=== PATIENT | female | born 1975 | race Caucasian/White ===

== ENCOUNTER 2016-09-20 11:49 | Inpatient (IN) | payer OTHER ==
[~2016-09-20] VITALS: Ht 167.6 cm; Wt 86.0 kg
[~2016-09-20 11:49] MED LIST: PREN1TAB17 PO
[2016-09-20] MEDS ORDERED: ACETAMINOPHEN 325 MG TAB PO STA (13:20)
[2016-09-20 13:59] LABS: ADD SCAN DIFF NO
[2016-09-20 14:02] LABS: BASOPHILS % 0.1 % (0.0-2.0); EOSINOPHILS # 0.1 10^3/ul (0.0-0.5); EOSINOPHILS % 0.8 % (0.0-7.0); HEMATOCRIT 35.4 % (37.0-47.0); HEMOGLOBIN 11.3 g/dl (12.0-16.0); LYMPHOCYTES # 1.4 10^3/ul (0.8-2.9); LYMPHOCYTES % 17.2 % (15.0-51.0); MEAN CORPUSCULAR HEMOGLOBIN 27.8 pg (29.0-33.0); MEAN CORPUSCULAR HGB CONC 31.9 g/dl (32.0-37.0); MEAN CORPUSCULAR VOLUME 87.2 fl (82.0-101.0); MONOCYTE # 0.3 10^3/ul (0.3-0.9); MONOCYTES % 4.1 % (0.0-11.0); NEUTROPHIL # 6.4 10^3/ul (1.6-7.5); NEUTROPHILS % 77.4 % (39.0-77.0); PLATELET COUNT 284 10^3/UL (140-415); RED BLOOD COUNT 4.06 10^6/ul (4.20-5.40); WHITE BLOOD COUNT 8.3 10^3/ul (4.8-10.8)
[2016-09-20 14:17] LABS: ADD UMIC YES; URINE BILIRUBIN (Dip) NEGATIVE (NEGATIVE); URINE BLOOD (Dip) 3+ (NEGATIVE); URINE COLOR LT. YELLOW (YELLOW); URINE GLUCOSE (Dip) NEGATIVE (NEGATIVE); URINE KETONES (Dip) NEGATIVE (NEGATIVE); URINE LEUKOCYTE ESTERASE (Dip) NEGATIVE (NEGATIVE); URINE NITRITE (Dip) NEGATIVE (NEGATIVE); URINE TOTAL PROTEIN (Dip) NEGATIVE (NEGATIVE); URINE UROBILINOGEN (Dip) 0.2 E.U./dL (0.1-1.0)
--- NOTE | 2016-09-20 14:23 | RADRPT ---
PROCEDURE: US Pelvis. CLINICAL INDICATION: vaginal bleeding TECHNIQUE: Multiple sonographic images of the pelvis were obtained utilizing a transabdominal and endovaginal technique. The images were reviewed on a PACS workstation. COMPARISON: None. FINDINGS: The uterus is normal in size and demonstrates a heterogeneous appearance of the myometrium. There is a 4.2 x 2.5 cm mixed echogenicity mass in the anterior uterus, suspicious for a fibroid. The endome trial stripe is homogeneous in appearance and has the thickness of 4 mm. No intrauterine gestation is noted. The right ovary measures 5.2 x 2.3 x 2.8 cm. There are normal follicles within the right ovary. The re is normal Doppler flow in the right ovary. There is a 3.4 x 2.8 cm heterogeneous mass adjacent to the right ovary, suspicious for a possible ec topic . There is a small amount of free fluid in the cul-de-sac. The left ovary was not visualized. RPTAT: AA IMPRESSION: No intrauterine gestation visualized. 3.4 cm heterogeneous mass adjacent to the right ovary, suspicious for a possible ectopic . Large fibroid within the uterus. Follow-up ultrasound and HCG levels is recommended. A call report was made and the findings discussed with Aubree Pickett Pa-c (Desire Abbasi) at 09/20/2016 2:1 8:49 PM. .Renard Christensen MD, MD Date Time Electronically viewed and signed by .Renard Christensen MD, MD on 09/20/2016 14:22 .S/
[2016-09-20 14:46] LABS: SQUAMOUS EPITHELIAL CELL,UR FEW
[2016-09-20 15:28] LABS: PT RATIO 1.1
[2016-09-20 15:31] LABS: ALBUMIN 4.3 g/dl (3.3-4.9); POTASSIUM 3.9 mmol/L (3.5-5.1)
[2016-09-20 15:33] LABS: CREATININE 0.69 mg/dl (0.44-1.00)
[2016-09-20 15:34] LABS: ALBUMIN/GLOBULIN RATIO 1.3; BILIRUBIN,INDIRECT 0.2 mg/dl (0-1.1); BILIRUBIN,TOTAL 0.2 mg/dl (0.2-1.3); TOTAL PROTEIN 7.6 g/dl (6.1-8.1)
[2016-09-20 15:35] LABS: CALCIUM 9.1 mg/dl (8.4-10.2)
[2016-09-20 16:25] LABS: PROTIME 13.1 Sec (12.2-14.2)
[2016-09-20 16:26] LABS: INR 0.99; PARTIAL THROMBOPLASTIN TIME 25.5 Sec (25.0-35.0)
[2016-09-20] MEDS ORDERED: SOD CHLORIDE 0.9% 1,000 ML IV SCH (16:33)
--- NOTE | 2016-09-20 16:49 | ERA ---
ER Documentation Chief Complaint Date/Time DATE: 09/20/16 TIME: 16:38 Chief Complaint WITH SPOTTING TODAY HPI 40-year-old female patient who is a presents to the ED complaining of bilateral left and right lower pelvic pain, predominantly in the right pelvic region associated with vaginal spotting that started 4 days ago. States that the vaginal bleeding is worsening and getting heavier since earlier today and had to change 4 pads. Describes the pain as a pulsating sensation and rates the pain a 4 out of 10. Denies any nausea, vomiting, diarrhea, constipation, chest pain, shortness of breath. States that she has had previous C-sections. Denies any vaginal discharge, dysuria, urgency, frequency, flank pain, hematuria. States that her last menses was on August 26, 2016. 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 ROS All systems reviewed and are negative except as per history of present illness. Medications Home Meds Reported Medications Vit-Iron Fumarate-FA ( Tablet) 1 Each Tablet, 1 EACH PO DAILY 03/27/13 [none] No Conflict Check 08/27/12 Allergies Allergies: Coded Allergies: No Known Allergy (Unverified , 08/27/12) PMhx/Soc Medical and Surgical Hx: pt denies Medical Hx History of Surgery: Yes (CAESARIAN SECTION) Anesthesia Reaction: No Hx Neurological Disorder: No Hx Respiratory Disorders: No Hx Cardiac Disorders: No Hx Psychiatric Problems: No Hx Miscellaneous Medical Probl: Yes (Abdominal sugery unk name 6yrs ago) Hx Alcohol Use: No Hx Substance Use: No Hx Tobacco Use: No Physical Exam Vitals Vital Signs Date Time Temp Pulse Resp B/P Pulse Ox O2 Delivery O2 Flow Rate FiO2 09/20/16 11:59 98.1 77 18 132/77 99 Physical Exam Const: [id number], well-nourished. In no acute distress. Head: Atraumatic, normocephalic Eyes: Normal Conjunctiva without injection. No purulent discharge. ENT: Normal external ear, nose. Moist oropharynx without tonsillar exudates. Non -erythematous pharynx. Uvula midline. No drooling. No trismus. Neck: No cervical midline tenderness. Full range of motion. No meningismus. No cervical lymphadenopathy. No JVD. Resp: Clear to auscultation bilaterally. No wheezing, rhonchi, rales, or crackles. No accessory muscle use. No retractions. Cardio: Regular rate and rhythm. No murmurs, rubs or gallops. Abd: Soft, right lower quadrant tenderness, non distended. Normal bowel sounds. No palpable masses. No rebound tenderness. No guarding. Negative McBurney' s point. Negative psoas sign. Negative obturator sign. Skin: No petechiae or rashes Back: No midline tenderness. No CVA tenderness. Ext: No cyanosis, or edema. Neur: Awake and alert. Normal gait. Normal coordination. Psych: Normal Mood and Affect Result Diagram: 09/20/16 1343 09/20/16 1500 Results 24 hrs Laboratory Tests Test 09/20/16 13:12 09/20/16 13:43 09/20/16 15:00 Urine Color LT. YELLOW Urine Clarity CLEAR Urine pH 5.5 Urine Specific Blanca 1.010 Urine Ketones NEGATIVE Urine Nitrite NEGATIVE Urine Bilirubin NEGATIVE Urine Urobilinogen 0.2 E.U./dL Urine Leukocyte Esterase NEGATIVE Urine Microscopic RBC 10-25/HPF Urine Microscopic WBC 0-2/HPF Urine Squamous Epithelial Cells FEW Urine Hemoglobin 3+ Urine Glucose NEGATIVE% Urine Total Protein NEGATIVE White Blood Count 8.310^3/ul Red Blood Count 4.0610^6/ul Hemoglobin 11.3g/dl Hematocrit 35.4% Mean Corpuscular Volume 87.2fl Mean Corpuscular Hemoglobin 27.8pg Mean Corpuscular Hemoglobin Concent 31.9g/dl Red Cell Distribution Width 13.0% Platelet Count 28239^3/UL Mean Platelet Volume 9.0fl Neutrophils % 77.4% Lymphocytes % 17.2% Monocytes % 4.1% Eosinophils % 0.8% Basophils % 0.1% Nucleated Red Blood Cells % 0.0/100WBC Neutrophils # 6.410^3/ul Lymphocytes # 1.410^3/ul Monocytes # 0.310^3/ul Eosinophils # 0.110^3/ul Basophils # 0.010^3/ul Nucleated Red Blood Cells # 0.010^3/ul Beta HCG, Quantitative 214.0mIU/ml Prothrombin Time 13.1Sec Prothrombin Time Ratio 1.1 INR International Normalized Ratio 0.99 Activated Partial Thromboplast Time 25.5Sec Sodium Level 140mmol/L Potassium Level 3.9mmol/L Chloride Level 103mmol/L Carbon Dioxide Level 25mmol/L Anion Gap 16 Blood Urea Nitrogen 12mg/dl Creatinine 0.69mg/dl Glucose Level 90mg/dl Calcium Level 9.1mg/dl Total Bilirubin 0.2mg/dl Direct Bilirubin 0.00mg/dl Indirect Bilirubin 0.2mg/dl Aspartate Amino Transf (AST/SGOT) 30IU/L Alanine Aminotransferase (ALT/SGPT) 41IU/L Alkaline Phosphatase 78IU/L Total Protein 7.6g/dl Albumin 4.3g/dl Globulin 3.30g/dl Albumin/Globulin Ratio 1.30 Current Medications Medications (Trade) Dose Ordered Sig/Eppe Route PRN Reason Start Time Stop Time Status Last Admin Dose Admin Acetaminophen 650 mg 650 mg ONCE STAT PO 09/20/16 13:20 09/20/16 13:25 DC 09/20/16 14:11 Sodium Chloride (NS) 1,000 ml @ 80 mls/hr [id number] IV 09/20/16 16:33 09/21/16 05:02 09/20/16 16:37 Ondansetron HCl (Zofran Inj) 4 mg BRIDGE ORDER PRN IV NAUSEA AND/OR VOMITING 09/20/16 17:00 09/21/16 16:59 Acetaminophen (Tylenol Tab) 650 mg ER BRIDGE PRN PO MILD PAIN/FEVER 09/20/16 17:00 09/21/16 16:59 Procedures/MDM This is a 40-year-old female patient who is a presents to the ED complaining of right and left lower pelvic pain that started intermittently 4 days ago associated with vaginal bleeding. Patient is afebrile and nontoxic- appearing. Patient has normal vital signs. An ultrasound, beta-hCG, CBC, type and RH, UA was ordered to evaluate patient. CBC: No evidence of severe infection or anemia Urine: No elevation in nitrites, leukocyte esterase, hematuria. No evidence of UTI Rh: O+ No indication for Rhogam at this time. beta Hc PROCEDURE: US Pelvis. CLINICAL INDICATION: vaginal bleeding TECHNIQUE: Multiple sonographic images of the pelvis were obtained utilizing a transabdominal and endovaginal technique. The images were reviewed on a PACS workstation. COMPARISON: None. FINDINGS: The uterus is normal in size and demonstrates a heterogeneous appearance of the myometrium. There is a 4.2 x 2.5 cm mixed echogenicity mass in the anterior uterus, suspicious for a fibroid. The endometrial stripe is homogeneous in appearance and has the thickness of 4 mm. No intrauterine gestation is noted. The right ovary measures 5.2 x 2.3 x 2.8 cm. There are normal follicles within the right ovary. There is normal Doppler flow in the right ovary. There is a 3.4 x 2.8 cm heterogeneous mass adjacent to the right ovary, suspicious for a possible ectopic . There is a small amount of free fluid in the cul-de-sac. The left ovary was not visualized. RPTAT: AA IMPRESSION: No intrauterine gestation visualized. 3.4 cm heterogeneous mass adjacent to the right ovary, suspicious for a possible ectopic . Large fibroid within the uterus. Follow-up ultrasound and HCG levels is recommended. A call report was made and the findings discussed with Aubree Dior Pa-c (Desire givens) at 09/20/2016 2:18:49 PM. This case was discussed with my supervising physician, Dr. Ruiz. We both agreed to consult the laborist security professional, Dr. Dey who evaluated patient at this time. Patient could likely have a miscarriage versus ectopic based on the 3.4 cm heterogenous mass adjacent to right ovary. beta Hcg is 214. No leukocytosis noted. Patient's pain improved after receiving Tylenol. Patient's bleeding symptoms have stabilized while in the department. Low suspicion for symptomatic anemia, sepsis, PID, appendicitis, ovarian torsion, tubo-ovarian abscess, surgical abdomen, or other emergent conditions. Dr. Dey will admit the patient at this time to [facility] for further evaluation and treatment. Patient will now be under the care of Dr. Dey. Patient agreed to be admitted at this time. Departure Diagnosis: Primary Impression: Vaginal bleeding before 22 weeks gestation Additional Impression: Pelvic pain affecting Condition: Fair AUBREE DIOR PA-C Sep 20, 2016 16:49
--- NOTE | 2016-09-20 16:55 | EN ---
Date/Time of Note Date/Time of Note DATE: 09/20/16 TIME: 16:55 ER Progress Note This 40-year-old female presents to the emergency room for evaluation of abdominal discomfort. She was originally seen in the fast track area, and I was informed that this patient could have a possible ectopic. BUILDING CONSTRUCTION PROFESSOR has been consulted and I would like to admit this patient. This patient will be admitted under the care of RO Monzon DO Sep 20, 2016 16:55
[2016-09-20 17:00] VITALS: TEMP 98.4
[2016-09-20] MEDS ORDERED: NACL 0.9% 3 ML SYG IV SCH (17:00)
[2016-09-20] MEDS ORDERED: ONDANSETRON 4 MG INJ IV PRN (17:00)
[2016-09-20] MEDS ORDERED: ACETAMINOPHEN 325 MG TAB PO PRN (17:00)
[2016-09-20 17:28] VITALS: BP 106/61; RESP 18
--- NOTE | 2016-09-20 17:46 | HP ---
DATE OF ADMISSION: 09/20/2016 HISTORY OF PRESENT ILLNESS: The patient is a 40-year-old G4, P3, last menstrual period approximatel y a month ago, who presents today complaining of this morning the patient had vaginal bleeding simil ar to a period and some abdominal cramping. The patient also complaining of some mild pain in the l ower abdomen on the right side. No nausea, no vomiting, fevers or chills. Pain is improving. Blee ding has slowed down. Cramping has slowed down. PAST MEDICAL HISTORY: None. PAST SURGICAL HISTORY: None. PAST OBSTETRIC HISTORY: x2, x1. MEDICATIONS: None. PHYSICAL EXAMINATION: VITAL SIGNS: Stable. HEART: ____ rate, regular rhythm. CHEST: Clear to auscultation bilaterally. ABDOMEN: Soft, nontender. No rebound or guarding. EXTREMITIES: There is no edema. Ultrasound done shows no intrauterine . There is a 3.5, 3.4 cm heterogeneous mass adjacent to the right ovary suspicious for possible ectopic . The patient's beta-hCG is 214. CBC, CMP within normal limits. Hemoglobin is 11.3. MEDICAL DECISION MAKING: A 40-year-old, of unknown location. The patient, due to the fac t that, per patient, has vaginal bleeding similar to a period this morning, some cramping, probable SAB. However, due to the fact the patient did have some abdominal pain and does on ultrasound have a 3.5 cm mass on the right side suspicious for ectopic , ectopic cannot be ruled out. Discussed with the patient that the best course of option would be to have her stay in the [facility], to repeat the hCG and ultrasound in the morning, and hCG if it has gone down appropriately, t he patient most likely has had a SAB. In fact, the patient has had heavy bleeding and cramping. Ho wever, again, due to the fact the patient has right abdominal pain and does have on imaging a possib le ____ mass or ectopic , I felt that it was appropriate [facility] the [facility] the next 24 or 48 hours. Dictated By: ELMA DIAZ MD /NTS Conf#: [id number] DID#: [id number]
[2016-09-20 18:05] VITALS: BP 115/70; PULSE 71; RESP 16
[2016-09-20 18:08] VITALS: Ht 167.6 cm; Wt 86.0 kg
[2016-09-20 20:00] VITALS: BP 117/71; RESP 20
[2016-09-21 05:35] LABS: ADD SCAN DIFF NO
[2016-09-21 06:12] LABS: BASOPHILS % 0.3 % (0.0-2.0); EOSINOPHILS # 0.2 10^3/ul (0.0-0.5); HEMATOCRIT 32.9 % (37.0-47.0); HEMOGLOBIN 10.5 g/dl (12.0-16.0); LYMPHOCYTES # 2.2 10^3/ul (0.8-2.9); LYMPHOCYTES % 36.9 % (15.0-51.0); MEAN CORPUSCULAR HGB CONC 31.9 g/dl (32.0-37.0); MEAN CORPUSCULAR VOLUME 87.7 fl (82.0-101.0); MEAN PLATELET VOLUME 9.3 fl (7.4-10.4); MONOCYTE # 0.4 10^3/ul (0.3-0.9); MONOCYTES % 6.6 % (0.0-11.0); NEUTROPHIL # 3.2 10^3/ul (1.6-7.5); NEUTROPHILS % 52.9 % (39.0-77.0); PLATELET COUNT 271 10^3/UL (140-415); RED BLOOD COUNT 3.75 10^6/ul (4.20-5.40); RED CELL DISTRIBUTION WIDTH 12.9 % (11.5-14.5)
[2016-09-21 07:48] VITALS: BP 108/65; RESP 18
--- NOTE | 2016-09-21 15:27 | RADRPT ---
PROCEDURE: OB Ultrasound. CLINICAL INDICATION: Positive test. Vaginal bleeding. TECHNIQUE: Ultrasound of the pelvis was performed with transabdominal and transvaginal sonography in the axial and sagittal planes. COMPARISON: 09/20/2016 which demonstrated no intrauterine gestation and a 3.4 cm heterogeneous mas s adjacent to the right ovary. FINDINGS: There is no intrauterine gestational sac. The uterus measures 10.4 x 5.1 x 5.8 cm. Endometrial thi ckness is 14 mm. There is an anterior hyperechoic mass in the uterus consistent with a fibroid laura uring 2.5 x 1.6 cm. The right ovary appears normal measuring 5.2 x 2.0 x 3.3 cm. The left ovary is not visualized. Color Doppler and pulsed Doppler sonography demonstrate normal flow to the right ovary. There is trace free fluid. There is a right adnexal mass measuring 2.3 x 2.2 x 2.6 cm, slightly sma ller than seen previously. IMPRESSION: 1. No intrauterine gestational sac. If the patient has a positive test, ectopic gestatio n cannot be excluded. 2. Right adnexal mass, slightly smaller than seen previously which may be due to ectopic gestation. 3. Fibroid in the uterus measuring 2.5 cm. 4. Left ovary not visualized. RPTAT: QQ .Donal Christiansen MD, Date Time Electronically viewed and signed by .Donal Christiansen MD, on 09/21/2016 15:27 .R/
--- NOTE | 2016-09-21 16:25 | CONS ---
Date/Time of Note Date/Time of Note DATE: 09/21/16 TIME: 15:34 Consultation Date/Type/Reason Admit Date/Time September 21, 2069 Hospital consult and discharge Reason for Consultation This patient is a 40 years old 4 para 3 who was seen in emergency room due to vaginal bleeding and lower abdominal pain for 4 days on ultrasound study the uterus was described as normal there was a 4.2 x 2.5 cm mixed echogenicity mass in the anterior of the uterus which was suspicious of a fibroid nodule The endometrial was about 4 mm in thickness the right ovary was about 5.2 x 2.3 x 2.8 cm also a 3.4 x 2.8 cm heterogeneous mass was noted next to the ovary With diagnosis of possible ectopic she was admitted in the hospital her beta hCG was reported at 214 [facility] and the decision was in case of a heavy bleeding she will undergo for D&C,and if the beta hCG goes down and she might be discharged . Today which is her second day of hospitalization is doing fairly well .She does have a slight bleeding. Her beta hCG dropped to have about 112 On pelvic examination she does have slight bleeding however no cervical motion tenderness uterus is about top normal size, no palpable adnexal mass Laboratory Tests Test 09/21/16 04:57 White Blood Count 6.010^3/ul Red Blood Count 3.7510^6/ul Hemoglobin 10.5g/dl Hematocrit 32.9% Mean Corpuscular Volume 87.7fl Mean Corpuscular Hemoglobin 28.0pg Mean Corpuscular Hemoglobin Concent 31.9g/dl Red Cell Distribution Width 12.9% Platelet Count 21762^3/UL Mean Platelet Volume 9.3fl Neutrophils % 52.9% Lymphocytes % 36.9% Monocytes % 6.6% Eosinophils % 3.0% Basophils % 0.3% Nucleated Red Blood Cells % 0.0/100WBC Neutrophils # 3.210^3/ul Lymphocytes # 2.210^3/ul Monocytes # 0.410^3/ul Eosinophils # 0.210^3/ul Basophils # 0.010^3/ul Nucleated Red Blood Cells # 0.010^3/ul Beta HCG, Quantitative 148.5mIU/ml Current Medications Medications (Trade) Dose Ordered Sig/Pepe Route PRN Reason Start Time Stop Time Status Last Admin Dose Admin Acetaminophen 650 mg 650 mg ONCE STAT PO 09/20/16 13:20 09/20/16 13:25 DC 09/20/16 14:11 650 MG Sodium Chloride (NS) 1,000 ml @ 80 mls/hr [id number] IV 09/20/16 16:33 09/21/16 05:02 DC 09/20/16 16:37 80 MLS/HR Ondansetron HCl (Zofran Inj) 4 mg BRIDGE ORDER PRN IV NAUSEA AND/OR VOMITING 09/20/16 17:00 09/21/16 11:17 DC Acetaminophen (Tylenol Tab) 650 mg ER BRIDGE PRN PO MILD PAIN/FEVER 09/20/16 17:00 09/21/16 11:17 DC 09/20/16 22:05 650 MG IV Flush (NS 3 ml) 3 ml PER PROTOCOL IV 09/20/16 17:00 Constitutional: improved, no complaints, No chills, No diaphoresis, No disoriented, No febrile, No other, No poor po, No requiring IVF, No requiring O2 Eyes: No discharge, No no complaints, No other, No pain, No redness, No visual change ENT: No bleeding, No congestion, No discharge, No dysphagia, No no complaints, No other, No pain, No sore throat Respiratory: No cough, No no complaints, No other, No pain, No pleuritic pain, No shortness of breath, No sputum, No wheezing Cardiovascular: No chest pain, No edema, No lightheadedness, No no complaints, No orthopenea, No other, No palpitations, No paroxysmal nocturnal dyspnea Gastrointestinal: No blood, No constipation, No decreased appetite, No diarrhea , No flatus, No nausea, No no complaints, No other, No pain, No passing stool, No vomiting Genitourinary: other (On pelvic examination she has slight vaginal bleeding uterus is top normal size no cervical tenderness no adnexal mass could be palpated), No bleeding, No discharge, No dysuria, No flank pain, No hematuria, No no complaints Musculoskeletal: No back pain, No bone/joint pain, No neck pain, No no complaints, No other, No restricted range of motion, No swelling Skin: No bruising, No erythema, No laceration, No no complaints, No other, No pruritis, No rash, No skin lesions Neurologic: No confusion, No dizziness, No focal-weakness, No headache, No no complaints, No other, No seizure, No syncope Endocrine: No dry skin, No no complaints, No other, No polydypsia, No polyuria , No temp intolerance Additional Comments With these finding and the fact that her beta-hCG dropped 50% just in 1 day the diagnosis of complete confirmed The situation was discussed with patient in detail and she is discharged home to rest and see her suit attendant in 2 weeks I mentioned to her that in case of heavy bleeding pain fever she also can come back to the hospital emergency room to be seen Social History Smoking Status: Never smoker Exam/Review of Systems Vital Signs Vitals Vital Signs Date Time Temp Pulse Resp B/P Pulse Ox O2 Delivery O2 Flow Rate FiO2 09/21/16 07:48 98.4 74 18 108/65 97 09/20/16 18:05 Room Air Intake and Output 09/20/16 09/20/16 09/21/16 15:00 23:00 07:00 Intake Total 480 ml 480 ml Balance 480 ml 480 ml Results Result Diagram: 09/21/16 0457 09/20/16 1500 Results 24 hrs Laboratory Tests Test 09/21/16 04:57 White Blood Count 6.0 # Red Blood Count 3.75 L Hemoglobin 10.5 L Hematocrit 32.9 L Mean Corpuscular Volume 87.7 Mean Corpuscular Hemoglobin 28.0 L Mean Corpuscular Hemoglobin Concent 31.9 L Red Cell Distribution Width 12.9 Platelet Count 271 Mean Platelet Volume 9.3 Neutrophils % 52.9 Lymphocytes % 36.9 Monocytes % 6.6 Eosinophils % 3.0 Basophils % 0.3 Nucleated Red Blood Cells % 0.0 Neutrophils # 3.2 Lymphocytes # 2.2 Monocytes # 0.4 Eosinophils # 0.2 Basophils # 0.0 Nucleated Red Blood Cells # 0.0 Beta HCG, Quantitative 148.5 ZAIRA QUINONES MD Sep 21, 2016 16:25
== END 2016-09-21 16:15 | disposition home or self-care (01) | DRG 777 ==
LOC: FTE 11:49 → MS2 16:33
DX: O00.90 Unspecified ectopic pregnancy without intrauterine pregnancy (principal); O09.523 Supervision of elderly multigravida, third trimester; Z3A.22 22 weeks gestation of pregnancy
CPT/HCPCS: 76801; 76817; 80053; 81001; 81003; 84702; 85025; 85610; 85730; 86850; 86900; 86901; J7030